=== PATIENT | female | born 1965 ===

== ENCOUNTER 2021-09-08 20:00 | Emergency (ER) | payer BC ==
[2021-09-08 20:22] LABS: Absolute Lymphocytes (CBC) 2.1 K/uL (0.7-4.9); Hematocrit 37.5 % (36.0-45.0); Lymphocytes % 31.3 % (15.3-44.8); RBC Red Blood Cell Count 4.39 M/uL (3.86-4.86)
--- NOTE | 2021-09-08 20:26 | RAD REPORT ---
EXAM DESCRIPTION: CT - [facility] - 09/08/2021 8:15 pm CLINICAL HISTORY: Trauma, head and neck injury. head injury COMPARISON: Soft Tissue Neck W/Contr dated 06/15/2016 TECHNIQUE: Axial 5 mm thick images of the head were obtained. Axial 2 mm thick images of the cervical spine were obtained with sagittal and coronal reconstruction images generated and reviewed. All CT scans are performed using dose optimization technique as appropriate and may include automated exposure control or mA/KV adjustment according to patient size. FINDINGS: CT HEAD WITHOUT CONTRAST: No acute hemorrhage, hydrocephalus or extra-axial collection is identified.No areas of brain edema or midline shift. Mild fluid is seen in the right maxillary antrum. The paranasal sinuses and mastoids are otherwise cl ear.Small left scalp hematoma.The calvarium is intact. CT CERVICAL SPINE WITHOUT CONTRAST: No fracture or subluxation.Mild cervical degenerative changes.No prevertebral soft tissues swelling i s identified. IMPRESSION: No acute intracranial or cervical spine findings.
[2021-09-08 20:32] LABS: Potassium 3.3 mmol/L (3.5-5.1)
[2021-09-08] MEDS ORDERED: TETANUS & DIPHTHERIA TOX,ADULT 0.5 ML VIAL ONE (21:16)
--- NOTE | 2021-09-08 22:00 | ER ---
Nurse's Notes [facility] Name: Manoj Carmona Age: 56 yrs Sex: Female : 1965 Arrival Date: 09/08/2021 Time: 20:03 Bed 7 Private MD: Diagnosis: Unspecified injury of head, initial encounter;Laceration without foreign body of scalp Presentation: 09/08 20:03 Chief complaint: EMS states: "She was at home drinking when she fell and it appears to tw5 have hit her head on her sewing machine. LOC, she was down for an unknown amount of time.". Care prior to arrival:. Care prior to arrival: Medication(s) given: IV initiated. 20 GA, in the right antecubital area. Mechanism of Injury: Fall from standing position. Trauma event details: Injury occurred in the [facility], Injury occurred: at home. Injury occurred: September 08, 2021 Injury occurred at: 19:00. 20:03 Acuity: WALTER 2 tw5 20:03 Method Of Arrival: [facility] tw5 20:07 Coronavirus screen: Vaccine status: Patient reports receiving the 2nd dose of the covid tw5 vaccine. [id number]. Ebola Screen: Patient negative for fever greater than or equal to 101.5 degrees Fahrenheit, and additional compatible Ebola Virus Disease symptoms Patient denies exposure to infectious person. Patient denies travel to an Ebola-affected area in the 21 days before illness onset. Initial Sepsis Screen: Does the patient meet any 2 criteria? No. Patient's initial sepsis screen is negative. Does the patient have a suspected source of infection? No. Patient's initial sepsis screen is negative. Risk Assessment: Do you want to hurt yourself or someone else? Unable to obtain. Onset of symptoms is unknown. Trauma Activation: Alert Physician: ED Physician; Name: ; Notified At: ; Arrived At: Physician: General Surgeon; Name: ; Notified At: ; Arrived At: Physician: Radiology; Name: ; Notified At: ; Arrived At: Physician: Respiratory; Name: ; Notified At: ; Arrived At: Physician: Lab; Name: ; Notified At: ; Arrived At: Historical: - Allergies: 20:07 No Known Allergies; tw5 - Immunization history: Last tetanus immunization: < 5 years ago. - Social history:: Smoking status: Patient denies any tobacco usage or history of. Screenin:03 Abuse screen: Denies threats or abuse. Denies injuries from another. Tuberculosis tw5 screening: No symptoms or risk factors identified. 20:18 Nutritional screening: No deficits noted. Fall Risk Fall in past 12 months (25 points). sm5 No secondary diagnosis (0 pts). IV access (20 points). Ambulatory Aid- None/Bed Rest/Nurse Assist (0 pts). Gait- Normal/Bed Rest/Wheelchair (0 pts) Mental Status- Oriented to own ability (0 pts). Total Gonzalez Fall Scale indicates High Risk Score (45 or more points). Fall prevention measures have been instituted. Side Rails Up X 2 Placed Close to Nursing Station Frequent Obs/Assessments Occuring As available patient and family educated on Fall Prevention Program and Strategies. Primary Survey: 20:03 NO uncontrolled hemorrhage observed. A: The client is awake and alert. The airway is tw5 patent. Breathing/Chest: Spontaneous respiratory effort, equal unlabored respirations, breath sounds clear bilaterally, regular pattern, symmetrical chest rise and fall. Circulation: No external hemorrhage present. Regular and strong central pulse, skin warm/dry/normal color. Disability Exposure/Environment: There is no evidence of uncontrolled external bleeding. Obvious injury(ies) are noted at this time: Laceratin to left side of scalp. 22:21 Reassessment Alertness and Airway: Awake and alert. The airway is patent. Breathing: sm5 Spontaneous respiratory effort, equal unlabored respirations, breath sounds clear bilaterally, regular pattern with symmetrical chest rise and fall. Circulation: No external hemorrhage noted. Regular and strong central pulse, skin warm/dry/normal color. Disability: Alert. Secondary Survey: 22:21 HEENT: Head Other laceration to back of head. Gastrointestinal: No deficits noted. : sm5 No deficits noted. Musculoskeletal: No deficits noted. Assessment: 20:03 General: Appears uncomfortable, obese, Behavior is cooperative, anxious, crying, tw5 Reports. General: Reports "I am just so embarrassed.". Pain: Denies pain. 21:15 Reassessment: Patient and/or family updated on plan of care and expected duration. Pain tw5 level reassessed. Patient is alert, oriented x 3, equal unlabored respirations, skin warm/dry/pink. Wound on scalp cleaned as ordered, tolerated well, ERP notified. 22:20 Reassessment: No changes from previously documented assessment. Patient and/or family sm5 updated on plan of care and expected duration. Pain level reassessed. Vital Signs: 20:03 BP 159 / 100; Pulse 80; Resp 14; Temp 98.4(O); Pulse Ox 100% on R/A; Weight 95.25 kg; tw5 Height 5 ft. 7 in. (170.18 cm); Pain 0/10; 21:15 BP 146 / 78; Pulse 66; Resp 17; Pulse Ox 97% on R/A; tw5 22:20 BP 121 / 65; Pulse 72; Resp 16; Pulse Ox 98% on R/A; sm5 20:03 Body Mass Index 32.89 (95.25 kg, 170.18 cm) tw5 Sanjay Coma Score: 20:03 Eye Response: spontaneous(4). Verbal Response: oriented(5). Motor Response: obeys tw5 commands(6). Total: 15. 21:15 Eye Response: spontaneous(4). Verbal Response: oriented(5). Motor Response: obeys tw5 commands(6). Total: 15. Trauma Score (Adult): 20:03 Eye Response: spontaneous(1); Verbal Response: oriented(1); Motor Response: obeys tw5 commands(2); Systolic BP: > 89 mm Hg(4); Respiratory Rate: 10 to 29 per min(4); [place]elton Score: 15; Trauma Score: 12 ED Course: 20:03 Patient arrived in ED. ll3 20:03 Kulwant Maciel MD is Attending Physician. kdr 20:03 Patient maintains SpO2 saturation greater than 95% on room air. tw5 20:05 Triage completed. tw5 20:07 Arm band placed on. tw5 20:10 Tammie Malik, KENTRELL is Primary Nurse. sm5 20:10 Basic Metabolic Panel Sent. sm5 20:10 CBC with Diff Sent. sm5 20:10 ETOH Level Sent. sm5 20:17 CT Head C Spine In Process Unspecified. EDMS 20:18 Thermoregulation: warm blanket given to patient. sm5 20:18 Patient has correct armband on for positive identification. Placed in gown. Bed in low sm5 position. Call light in reach. Side rails up X2. Client placed on continuous cardiac and pulse oximetry monitoring. NIBP monitoring applied. 22:20 No provider procedures requiring assistance completed. IV discontinued, intact, sm5 bleeding controlled, No redness/swelling at site. Pressure dressing applied. 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 Exp: tw5 06/26/2023. Lot #: [id number]. } Route: IM; Site: right deltoid; 22:22 Follow up: Response: No adverse reaction sm5 Medication: 22:23 Vaccine Information Statement (VIS) provided today. Questions and/or concerns sm5 addressed. VIS edition date: November 22, 2020. Intake: 20:03 PO: 0ml; Total: 0ml. tw5 Output: 20:03 Urine: 0ml; Total: 0ml. tw5 Outcome: 21:59 Discharge ordered by . kdr 22:21 Discharged to home ambulatory. sm5 22:21 Condition: stable 22:21 Patient's length of stay in the Emergency Department was greater than 2 hours. 22:21 Discharge instructions given to patient, Instructed on discharge instructions, follow sm5 up and referral plans. no drinking with medication, medication usage, Demonstrated understanding of instructions, follow-up care, medications, Prescriptions given X 1. 22:24 Patient left the ED. vc1 Signatures: Dispatcher [employer] EDMS Kulwant Maciel MD MD kdr Wood, Tiffany 5 Dana Meza RN RN 3 Tammie Malik RN RN sm5 Jackie Roman RN RN vc1 Corrections: (The following items were deleted from the chart) 22:31 22:23 VIS not applicable for this client. vc1 sm5
--- NOTE | 2021-09-08 22:00 | EDPHYS ---
Physician Documentation [facility] Name: Manoj Carmona Age: 56 yrs Sex: Female : 1965 Arrival Date: 09/08/2021 Time: 20:03 Bed 7 Private MD: ED Physician Kulwant Maciel HPI: 09/08 20:05 This 56 yrs old Female presents to ER via EMS with complaints of Fall Injury. kdr 20:05 Patient had a fall from standing apparently. She stated that along with her kdr they have been drinking since about 4:00. They have been drinking beer. Went to EMS she stood and then passed out or fell hitting her head with a contusion and laceration to the left parietal occipital area she has no other complaints of injuries. He is responding to questions appropriately and does not appear toxic or acutely ill and requiring immediate pain. Historical: - Allergies: 20:07 No Known Allergies; tw5 - Immunization history: Last tetanus immunization: < 5 years ago. - Social history:: Smoking status: Patient denies any tobacco usage or history of. ROS: 20:06 Constitutional: Negative for fever, chills, and weight loss, Eyes: Negative for injury, kdr pain, redness, and discharge, ENT: Negative for injury, pain, and discharge, Neck: Negative for injury, pain, and swelling, Cardiovascular: Negative for chest pain, palpitations, and edema, Respiratory: Negative for shortness of breath, cough, wheezing, and pleuritic chest pain, Abdomen/GI: Negative for abdominal pain, nausea, vomiting, diarrhea, and constipation, Back: Negative for injury and pain, : Negative for injury, bleeding, discharge, and swelling, MS/Extremity: Negative for injury and deformity, Skin: Negative for injury, rash, and discoloration, Psych: Negative for depression, anxiety, suicide ideation, homicidal ideation, and hallucinations, Allergy/Immunology: Negative for hives, rash, and allergies, Endocrine: Negative for neck swelling, polydipsia, polyuria, polyphagia, and marked weight changes, Hematologic/Lymphatic: Negative for swollen nodes, abnormal bleeding, and unusual bruising. 20:06 Neuro: Positive for altered mental status, loss of consciousness, syncope, weakness. Exam: 20:06 Constitutional: This is a well developed, well nourished patient who is awake, alert, kdr and in mild distress. 20:06 Head/face: Noted is abrasion(s), that are mild, of the left temporal area, contusion, a laceration(s), swelling, tenderness. Vital Signs: 20:03 BP 159 / 100; Pulse 80; Resp 14; Temp 98.4(O); Pulse Ox 100% on R/A; Weight 95.25 kg; tw5 Height 5 ft. 7 in. (170.18 cm); Pain 0/10; 21:15 BP 146 / 78; Pulse 66; Resp 17; Pulse Ox 97% on R/A; tw5 22:20 BP 121 / 65; Pulse 72; Resp 16; Pulse Ox 98% on R/A; sm5 20:03 Body Mass Index 32.89 (95.25 kg, 170.18 cm) tw5 [place] Coma Score: 20:03 Eye Response: spontaneous(4). Verbal Response: oriented(5). Motor Response: obeys tw5 commands(6). Total: 15. 21:15 Eye Response: spontaneous(4). Verbal Response: oriented(5). Motor Response: obeys tw5 commands(6). Total: 15. Trauma Score (Adult): 20:03 Eye Response: spontaneous(1); Verbal Response: oriented(1); Motor Response: obeys tw5 commands(2); Systolic BP: > 89 mm Hg(4); Respiratory Rate: 10 to 29 per min(4); Sanjay Score: 15; Trauma Score: 12 Laceration: 21:57 Wound Repair of 3cm ( 1.2in ) subcutaneous laceration to left temporal area. Distal kdr neuro/vascular/tendon intact. Anesthesia: Local anesthetic administered with 1% lidocaine. Wound prep: Extensive cleansing, Wound irrigation by me. Skin closed with 3 1-0 [place] using staple gun. Dressed with Bacitracin. Patient tolerated well. MDM: 20:06 Data reviewed: vital signs, nurses notes, lab test result(s), radiologic studies. kdr Counseling: I had a detailed discussion with the patient and/or guardian regarding: the historical points, exam findings, and any diagnostic results supporting the discharge/admit diagnosis, lab results, radiology results, the need for outpatient follow up. 21:59 Patient medically screened. kdr 09/08 20:05 Order name: Basic Metabolic Panel; Complete Time: 20:39 kdr 09/08 20:05 Order name: CBC with Diff; Complete Time: 20:39 kdr 09/08 20:05 Order name: CT Head C Spine; Complete Time: 20:39 kdr 09/08 20:05 Order name: Labs collected and sent; Complete Time: 20:10 kdr 09/08 20:05 Order name: ETOH Level; Complete Time: 20:54 kdr 09/08 21:14 Order name: Misc. 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 Exp: tw5 06/26/2023. Lot #: [id number]. } Route: IM; Site: right deltoid; 22:22 Follow up: Response: No adverse reaction [facility] Disposition Summary: 09/08/21 21:59 Discharge Ordered Location: Home kdr Problem: new kdr Symptoms: have improved kdr Condition: Stable kdr Diagnosis - Unspecified injury of head, initial encounter kdr - Laceration without foreign body of scalp kdr Followup: kdr - With: Private Physician - When: 2 - 3 days - Reason: Wound Recheck, If symptoms return, Further diagnostic work-up, Recheck today's complaints, Continuance of care, Re-evaluation by your physician Discharge Instructions: - Discharge Summary Sheet kdr - Sutures, David, or Adhesive Wound Closure kdr - Head Injury, Adult, [id number] kdr Forms: - Medication Reconciliation Form kdr - Thank You Letter kdr Prescriptions: - Cephalexin 500 mg Oral Capsule - take 1 capsule by ORAL route every 8 hours for 3 days; 9 capsule; Refills: 0, kdr Product Selection Permitted - Ibuprofen 600 mg Oral Tablet - take 1 tablet by ORAL route every 6 hours As needed take with food; 15 tablet; kdr Refills: 0, Product Selection Permitted Signatures: Dispatcher [employer] Kulwant Fairbanks MD MD kdr Wood, Tiffany [id number] Tammie Malik RN 5
[2021-09-08 22:29] VITALS: TEMP 98.4
[2021-09-08 22:31] VITALS: BP 121/65; O2SAT 98
== END 2021-09-08 22:24 | disposition home or self-care (01) ==
LOC: ER 20:00
PROC: 0JQ00ZZ Repair Scalp Subcutaneous Tissue and Fascia, Open Approach (ICD-10-PCS; principal; 2021-09-08)
DX: S01.01XA Laceration without foreign body of scalp, initial encounter (principal); W18.30XA Fall on same level, unspecified, initial encounter; Z23 Encounter for immunization
CPT/HCPCS: 36415; 70450; 72125; 80048; 80320; 85025; 90471; 90714; 99284